=== PATIENT | male | born 1980 | race Two or more races ===

== ENCOUNTER 2020-05-01 01:47 | Emergency (ER) | payer OTHER ==
[~2020-05-01] VITALS: Ht 167.6 cm; Wt 110.0 kg
[2020-05-01] MEDS ORDERED: ONDANSETRON 2MG/ML, 2ML ONE (01:56)
[2020-05-01] MEDS ORDERED: MORPHINE SULFATE 4 MG/ML, 1ML ONE ×3 (01:57→04:49)
[2020-05-01] MEDS: MORPHINE SULFATE 4 MG/ML, 1ML IVPush PRN ×2 (02:00→02:24)
[2020-05-01] MEDS ORDERED: PLEASE ENTER ALLERGIES MC SCH (02:00)
[2020-05-01] MEDS ORDERED: ONDANSETRON 2MG/ML, 2ML IVPush ONE (02:00)
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
--- NOTE | 2020-05-01 02:30 | NUR ---
PXR DONE, PT C/O INCREASE PAIN WITH MANIPULATION DURING XRAY. REMEDICATED PER ORDER. VSS. O2 SAT 96% RR 16
--- NOTE | 2020-05-01 02:34 | NUR ---
O2 SAT DOWN S/P MORPHINE, STIMULATED PT-O2 APPLIED. SATS BACK UP. WILL CONTINUE MONITOR.
--- NOTE | 2020-05-01 03:02 | NUR ---
RESTING COMFORTABLY, 3/10 PAIN.
--- NOTE | 2020-05-01 03:42 | NUR ---
rom chakraborty [phone]
[2020-05-01] MEDS ORDERED: PROPOFOL 10 MG/ML, 20ML ONE (03:58)
--- NOTE | 2020-05-01 04:46 | NUR ---
SEE PROCEDURAL SEDATION PACKET
--- NOTE | 2020-05-01 04:52 | NUR ---
PROPOFOL GIVEN BY DR DE LUNA.
[2020-05-01] MEDS ORDERED: MORPHINE SULFATE 4 MG/ML, 1ML IVPush PRN (05:00)
[2020-05-01] MEDS ORDERED: PROPOFOL 10 MG/ML, 20ML IVPush ONE (05:00)
--- NOTE | 2020-05-01 05:02 | NUR ---
PT BACK TO BASELINE END OF PACKET DOCUMENTATION.
--- NOTE | 2020-05-01 05:11 | NUR ---
RIGHT LE ELEVATED ON PILLOWS, REFUSES ICE, +CSMTP.
--- NOTE | 2020-05-01 05:21 | NUR ---
PT CALLING FRIEND FOR RIDE AND TO LISTEN TO THE DC INSTRUCT.
[2020-05-01 06:07] VITALS: BP 126/83
--- NOTE | 2020-05-01 06:08 | NUR ---
Patient given discharge instructions and they have confirmed that they understand the instructions. Patient ambulatory WITH CRUTCHES. PT NAD, FRIEND GIVING RIDE, DENIES ADDITIONAL QUESTIONS OR NEEDS. NO PERSONAL BELONGINGS LEFT IN ROOM AFTER DC
== END 2020-05-01 06:11 | disposition home or self-care (01) ==
LOC: ED 03:00
DX: S82.61XA Displaced fracture of lateral malleolus of right fibula, initial encounter for closed fracture (principal); S01.511A Laceration without foreign body of lip, initial encounter; S93.04XA Dislocation of right ankle joint, initial encounter; F17.200 Nicotine dependence, unspecified, uncomplicated; Y04.8XXA Assault by other bodily force, initial encounter; Y93.89 Activity, other specified; Y92.89 Other specified places as the place of occurrence of the external cause; Y99.8 Other external cause status
CPT/HCPCS: 27762; 73590; 73610; 96374; 96375; 96376; 99152; 99285; J2270; J2405; J2704; 27788